=== PATIENT | male | born 1975 | race Hispanic/Latino ===

== ENCOUNTER 2018-08-17 05:55 | Day surgery (SDC) | payer OTHER ==
[~2018-08-17] VITALS: Ht 175.3 cm; Wt 77.1 kg
--- NOTE | ~2018-08-17 | OR ---
[facility] [address] [place], [place] [address] Draft DATE OF OPERATION: 08/17/2018 SURGEON: Dennis Marti MD PREOPERATIVE DIAGNOSIS: Bony mallet finger, left long, with subluxation of the DIP joint. POSTOPERATIVE DIAGNOSIS: Bony mallet finger, left long, with subluxation of the DIP joint. PROCEDURE PERFORMED: Repair of mallet finger, left long finger. ANESTHESIA: Amy block with sedation. SPECIMENS AND COMPLICATIONS: There were no specimens or complications. TOURNIQUET TIME: About 45 minutes. WHAT WAS DONE: The patient was taken to the operating room. After anesthesia was induced and airway secured, the patient was positioned, prepped, and draped in a routine sterile fashion. A zigzag incision was made dorsally over the DIP joint. Skin was divided sharply. Subcutaneous tissue was bluntly spread. The extensor tendon and the detach bony fragment were gently elevated. We were then able to reduce the DIP joint, hold it in an extended position, and we secured it with a single K-wire introduced through the tip of the finger. We then cut off the extra K-wire, bent it off, and left it outside the skin. The small bony fragment on the extensor tendon was then gently peeled off and we reattached the extensor tendon to the base of the distal phalanx with interrupted sutures of 2-0 FiberWire. This gave us a solid secure repair. The wound was gently irrigated and closed in a standard fashion. Sterile dressing was applied. The patient was awakened and taken to the recovery room where he arrived in stable condition. Counts were correct and antibiotic protocols were followed. PATIENT NAME: SOPHIA CHANEL OPERATIVE REPORT DATE OF : 73 REPORT #: [id number] PHYSICIAN: DENNIS MARTI MD PCP: John Hurst NP REPORT IS CONFIDENTIAL AND NOT TO BE RELEASED WITHOUT AUTHORIZATION [address] [place] [address] Draft MD CARLO Tineo/MODPina /[id number] Copies: ~ PATIENT NAME: SOPHIA CHANEL OPERATIVE REPORT DATE OF : 73 REPORT #: [id number] PHYSICIAN: DENNIS MARTI MD PCP: John Hurst NP REPORT IS CONFIDENTIAL AND NOT TO BE RELEASED WITHOUT AUTHORIZATION
--- NOTE | 2018-08-17 08:37 | NUR ---
08/17/18 0837 Diane Robins 0822- PT ARRIVES TO PACU NONAROUSABLE TO NOXIOUS STIMULI. PT HAS AN OPA IN PLACE AND IS NEEDING A JAW LIFT IN ORDER TO MAINTAIN AIRWAY. AIRWAY BEING HELD BY WILFRID MUSA. PT ON 10L VIA MASK. OXYGEN SAT 100% ON THIS. RESP EVEN AND UNLABORED.
[2018-08-17] MEDS ORDERED: ULTRAM50 MG PO (09:37)
--- NOTE | 2018-08-17 09:47 | NUR ---
0920: PT PROVIDED PUDDING PER REQUEST. TOLERATES PO WELL.
--- NOTE | 2018-08-17 10:26 | NUR ---
1000: PT UP TO BATHROOM WITH GUARD ASSIST. PT ABLE TO VOID QS WITH NO PROBLEMS. PT BACK IN BED. VS OBTAINED, DC INSTRUCTIONS GIVEN IN PRESENCE OF PT AND TWO [facility] GUARDS. PT ASKS QUESTIONS, ALL QUESTIONS ANSWERED. PT DC'S FROM DS ROOM 10 VIA WC WITH GUARDS TO [facility].
== END 2018-08-17 10:25 | disposition home or self-care (01) ==
LOC: OPS 05:55 → DS 05:55 → OPS 06:45
PROVIDERS: Orthopaedic Surgery
PROC: 0RSX04Z Reposition Left Finger Phalangeal Joint with Internal Fixation Device, Open Approach (ICD-10-PCS; 2018-08-17)
PROC: 0LS80ZZ Reposition Left Hand Tendon, Open Approach (ICD-10-PCS; principal; 2018-08-17 06:45)
DX: M20.012 Mallet finger of left finger(s) (principal); S63.293A Dislocation of distal interphalangeal joint of left middle finger, initial encounter; M54.5 Low back pain; G89.29 Other chronic pain; X58.XXXA Exposure to other specified factors, initial encounter
CPT/HCPCS: 01830; 73140; J0690; J1100; J1885; J2250; J2405; J2704; J2765; J3010; J7120